=== PATIENT | male | born 1980 | race Caucasian/White ===

== ENCOUNTER 2024-04-23 23:26 | Emergency (ER) | payer OTHER, SELFPAY ==
[2024-04-23 23:28] VITALS: BP 205/120
--- NOTE | 2024-04-23 23:53 | ED.GENMED ---
History of Present Illness
<Liv Miller [employer] - Last Filed: 04/25/24 10:11>
General
Chief Complaint: Abdominal Pain
Source: patient
Exam Limitations: none
Time Seen by Provider: 04/23/24 23:53
Nursing documentation reviewed up to this point in time: agreed with
Travel History
Have you had any contact with someone who has COVID-19?: No
Do you have any symptoms of coronavirus? Fever > 100 degrees, chills, cough, shortness of breath, sore throat, loss of taste or smell, muscle aches, or headache?: No
History of Present Illness
History of Present Illness:
43-year-old male with history of HTN, inguinal hernia repair presents stating at 8 PM tonight he developed upper stomach pains 06/15 and then developed pain in the left side of his chest. He took ibuprofen 200 mg with no relief. He describes the
pain as 'tightness, cramping.' By 9:30 he felt so much pressure in his chest and stomach he tried to make himself vomit to relieve the pressure. He did vomit a little but this did not help.
Past History
<Liv Miller, [employer] - Last Filed: 04/25/24 10:11>
Past History
ED Past Medical History: HTN
ED Past Surgical History: Other (Hernia repair)
Social History
Tobacco: Non-smoker
Alcohol: Occasional
Personal:
Living: with family
Employment: Employed
Review of Systems
<Liv Miller, [employer] - Last Filed: 04/25/24 10:11>
Review of Systems
Allergies reviewed?: Yes
All Other Systems: ROS reviewed and negative except as documented in HPI and ROS
Constitutional: Denies fever
Respiratory: Denies trouble breathing
Cardiac: Reports chest pain; Denies diaphoresis, palpitations or syncope
ABD/GI: Reports abdominal pain and nausea; Denies vomiting or diarrhea
: Denies dysuria or difficulty voiding
Musculoskeletal: Reports no symptoms
Skin: Reports no symptoms
Neurological: Reports no symptoms
Phy Exam
<Liv Miller, [employer] - Last Filed: 04/25/24 10:11>
Physical Exam
Physical Exam:
GENERAL: No acute distress. A&Ox3.
CONSTITUTIONAL: Afebrile.
EYES: Clear, conjunctivae normal
ENMT: moist mucus membranes, Pharynx nl
RESPIRATORY: Regular respirations, nonlabored, lungs clear.
CARDIOVASCULAR: Regular rate and rhythm, no murmurs, no rubs.
GI: Soft, obese nontender, normal BS
MUSCULOSKELETAL: Moves with ease. Well perfused.
SKIN: Warm, dry, pink
PSYCH: Normal mood and affect. Well kept, interactive and appropriate
NEUROLOGIC: Awake, alert and oriented. No focal neurological deficits
Course
<Liv Miller, [employer] - Last Filed: 04/25/24 10:11>
Orders/Labs/Results
Orders:
Orders
04/23/24 23:31
EKG- Treatment ONCE
04/23/24 23:54
Complete Blood Count/With Diff Urgent
Comprehensive Metabolic Panel Urgent
04/24/24
Electrocardiogram (*1) Stat
Reason for Study: Abdominal Pain
04/24/24 00:20
Mag Hydrox/Al Hydrox/Simeth [Maalox] 30 ml Phenobarb/Hyoscy/Atropine/Scop [] 10 ml Viscous Lidocaine 2% [Xylocaine Viscous Cup] 10 ml PO NOW
04/24/24 00:21
CR Chest - 2 Views Urgent
Comment:
Reason For Exam: Chest pain
04/24/24 00:27
Phenobarb/Hyoscy/Atropine/Scop [] 10 ml .ROUTE .ST-MED ONE
04/24/24 00:28
Mag Hydrox/Al Hydrox/Simeth [Maalox] 30 ml .ROUTE .STK-MED ONE
Viscous Lidocaine 2% [Xylocaine Viscous Cup] 15 ml .ROUTE .STK-MED ONE
04/24/24 00:32
Lipase Urgent
Troponin I Urgent
04/24/24 00:56
Pantoprazole [Protonix IV] 80 mg IV NOW STA
04/24/24 01:33
Ketorolac [Toradol] 15 mg .ROUTE .STK-MED ONE
Pantoprazole [Protonix IV] 80 mg .ROUTE .STK-MED ONE
04/24/24 02:38
Sucralfate Suspension [Carafate Suspension] 1 gm .ROUTE .STK-MED ONE
04/24/24 04:03
Electrocardiogram (*1) Urgent
Reason for Study: Abdominal Pain
CT Abd/pelvis W Iv Cont Urgent
Comment:
Reason For Exam: diffuse abd pain
EKG- Treatment ONCE
04/24/24 04:07
Troponin I Urgent
04/24/24 05:49
US Abdomen Complete/Upper Urgent
Comment:
Reason For Exam: upper abd pain
Abnormal Lab Results
04/24/24
00:32
Abs Immat Gran (auto) 0.1 H 10^3/uL
(0-0.05)
Absolute Neuts (auto) 7.2 H 10^3/uL
(1.4-6.5)
Immature Gran % 0.6 H %
(0-0.5)
Lymphocytes % 18.6 L %
(20.5-51.1)
Glucose 117 H mg/dl
(70-99)
ALT 57 H U/L
(0-50)
04/24/24 00:32
04/24/24 00:32
Vital Signs
Initial and Last Documented VS:
Initial Vital Signs
Temp Pulse Resp BP Pulse Ox
97.8 F 80 18 205/120 100
04/23/24 23:28 04/23/24 23:28 04/23/24 23:28 04/23/24 23:28 04/23/24 23:28
Last Documented Vital Signs
Temp Pulse Resp BP Pulse Ox
97.3 F 75 12 157/84 98
04/24/24 07:49 04/24/24 07:49 04/24/24 07:49 04/24/24 07:49 04/24/24 07:49
<Kiran Alvarez, DO - Last Filed: 04/24/24 07:42>
Orders/Labs/Results
Orders:
Orders
04/23/24 23:31
EKG- Treatment ONCE
04/23/24 23:54
Complete Blood Count/With Diff Urgent
Comprehensive Metabolic Panel Urgent
04/24/24
Electrocardiogram (*1) Stat
Reason for Study: Abdominal Pain
04/24/24 00:20
Mag Hydrox/Al Hydrox/Simeth [Maalox] 30 ml Phenobarb/Hyoscy/Atropine/Scop [] 10 ml Viscous Lidocaine 2% [Xylocaine Viscous Cup] 10 ml PO NOW
04/24/24 00:21
CR Chest - 2 Views Urgent
Comment:
Reason For Exam: Chest pain
04/24/24 00:27
Phenobarb/Hyoscy/Atropine/Scop [] 10 ml .ROUTE .STK-MED ONE
04/24/24 00:28
Mag Hydrox/Al Hydrox/Simeth [Maalox] 30 ml .ROUTE .STK-MED ONE
Viscous Lidocaine 2% [Xylocaine Viscous Cup] 15 ml .ROUTE .STK-MED ONE
04/24/24 00:32
Lipase Urgent
Troponin I Urgent
04/24/24 00:56
Pantoprazole [Protonix IV] 80 mg IV NOW STA
04/24/24 01:33
Ketorolac [Toradol] 15 mg .ROUTE .STK-MED ONE
Pantoprazole [Protonix IV] 80 mg .ROUTE .STK-MED ONE
04/24/24 02:38
Sucralfate Suspension [Carafate Suspension] 1 gm .ROUTE .STK-MED ONE
04/24/24 04:03
Electrocardiogram (*1) Urgent
Reason for Study: Abdominal Pain
CT Abd/pelvis W Iv Cont Urgent
Comment:
Reason For Exam: diffuse abd pain
EKG- Treatment ONCE
04/24/24 04:07
Troponin I Urgent
04/24/24 05:49
US Abdomen Complete/Upper Urgent
Comment:
Reason For Exam: upper abd pain
Abnormal Lab Results
04/24/24
00:32
Abs Immat Gran (auto) 0.1 H 10^3/uL
(0-0.05)
Absolute Neuts (auto) 7.2 H 10^3/uL
(1.4-6.5)
Immature Gran % 0.6 H %
(0-0.5)
Lymphocytes % 18.6 L %
(20.5-51.1)
Glucose 117 H mg/dl
(70-99)
ALT 57 H U/L
(0-50)
04/24/24 00:32
04/24/24 00:32
Vital Signs
Initial and Last Documented VS:
Initial Vital Signs
Temp Pulse Resp BP Pulse Ox
97.8 F 80 18 205/120 100
04/23/24 23:28 04/23/24 23:28 04/23/24 23:28 04/23/24 23:28 04/23/24 23:28
Last Documented Vital Signs
Temp Pulse Resp BP Pulse Ox
97.3 F 75 12 157/84 98
04/24/24 07:49 04/24/24 07:49 04/24/24 07:49 04/24/24 07:49 04/24/24 07:49
<Liv Miller [employer] - Last Filed: 04/25/24 10:11>
MDM/Problems Addressed
Differential Diagnosis Includes:
[place], GERD
MDM/Problems Addressed:
43-year-old male with history of HTN, inguinal hernia repair presents stating at 8 PM tonight he developed upper stomach pains 06/15 and then developed pain in the left side of his chest. He took ibuprofen 200 mg with no relief. He describes the
pain as 'tightness, cramping.' By 9:30 he felt so much pressure in his chest and stomach he tried to make himself vomit to relieve the pressure. He did vomit a little but this did not help.
CBC normal
CMP normal
Lipase normal
Troponin:
Chest x-ray NAD
12:50 AM
Patient states no improvement after GI cocktail.
2:00 a.m.
Pt states some relief of pain, chest pain gone some relief of abdominal pain but it still persists.
Chronic conditions affecting care: HTN
<Liv Miller, [employer] - Last Filed: 04/25/24 10:11>
*Critical Care Note
Total Time (30-74mins, 75-104mins- exclusive of procedures): Not Applicable
ED Attending Note
<Liv Miller, [employer] - Last Filed: 04/25/24 10:11>
-
Portions of this chart may have been created with voice recognition software.� Occasional wrong word or��sound alike� substitutions may have occurred due to the inherent limitations of voice recognition software.
<Kiran Alvarez DO - Last Filed: 04/24/24 07:42>
ED Attending Note
Patient seen and examined by attending physician: Yes
I performed the substantive portion of visit, reviewed & personally made and approve the management plan that is documented in note by myself or LANCE.: Yes
ED Attending Note:
04/24/2024 0404 AM: In to see the patient, awakened him from sleep. Patient complaining at a 6 out of 10 diffuse abdominal pain. States that his pain has improved and he no longer has chest pain. At this point we will CT scan his abdomen and
pelvis as he states that he is having diffuse pain. Patient was seen in conjunction with the nurse practitioner. I have reviewed and agree with the history and treatment plan presented. On my independent physical exam, patient is awake, alert,
and oriented x3, still complaining of 6 out of 10 abdominal pain. Good bowel sounds in all 4 quadrants.
Discharge Plan
Departure
Patient Disposition: Home (Routine Discharge)
Date of Disposition: 04/24/24
Time of Disposition: 07:32
Patient with high blood pressure during this ER visit?: Yes
Condition: Good
Discharge Problem:
Atypical chest pain, Biliary colic
Instructions: Chest Pain That Is Not Caused by the Heart (DC), Acid Reflux and GERD in Adults (DC), Gallstones (DC), BLOOD PRESSURE
Prescriptions:
New
pantoprazole [Protonix] 40 mg tablet,delayed release (DR/EC)
40 mg PO DAILY Qty: 30 0RF
No Action
amlodipine 5 mg Tablet
5 mg PO DAILY
valsartan
1 tab PO DAILY
Patient Comments:
UNSURE OF MG
Referrals:
Won Gordon MD [Active] - Call in 1-3 days for appt
Rik Louis DO [Family Provider] - Call in 1-3 days for appt
Activity Restrictions/Additional Instructions:
It was a pleasure meeting you and taking part in your care. We hope for your continued healing and wellness.
Please read discharge instructions in their entirety. However, they are for general education and may not describe your exact diagnosis at discharge. Information on your ER visit and medical conditions were discussed with you along with appropriate
follow up information...
If indicated, please take your medications as instructed and indicated on discharge paperwork.
Please schedule a follow up appointment as directed. Call to schedule an appointment
Please return to the emergency department with ANY change in, persisting, or worsening of symptoms. If any of your symptoms do not improve, or persist, or become more severe within 6-12 hours, please return to the emergency department for further
care.
Please return to the emergency department if you develop a headache, neck pain/stiffness, fever greater than 100.4F, chest pain, shortness of breath, persistent nausea, vomiting, slurred speech, difficulty walking, numbness/tingling, weakness, signs
of infection or any other symptoms that are worrisome to you.
If you have any questions or concerns please do not hesitate to call the Hospital at or E-mail me directly at [email or web address]
Interventions
Interventions:
*Risk Screen - Suicide Last Done: 04/23/24 23:28
*General Assessment Last Done: 04/24/24 00:05
*Neglect/Abuse Screening Last Done: 04/23/24 23:28
*ED COVID-19 Vaccine History Last Done: 04/24/24 07:49
*Nursing Disposition Last Done: 04/24/24 07:49
PX-[id number]-Idgoqijycu Assessment Last Done: 04/24/24 00:05
ED- Cardiac Assessment Last Done: 04/24/24 00:05
Discharge Date and Time
Discharge Date/Time: 04/24/24 07:51
Print Language: GUYANESE
[2024-04-24] VITALS (7 sets, daily range): BP systolic 149–175; BP diastolic 81–106
[2024-04-24] MEDS: MAALOX 50 PO (00:29)
[2024-04-24 00:37] LABS: % Basophils 0.3 % (0-2); % Eosinophils 1.9 % (0-6); % Immature Granulocytes 0.6 % (0-0.5); % Lymphocytes 18.6 % (20.5-51.1); % Monocytes 6.4 % (1.7-9.3); % Neutrophils 72.2 % (42.2-75.2); Absolute Eosinophils 0.2 10^3/uL (0-0.7); Absolute Immature Granulocytes 0.1 10^3/uL (0-0.05); Absolute Lymphocytes 1.8 10^3/uL (1.2-3.4); Absolute Monocytes 0.6 10^3/uL (0.1-0.6); Absolute Neutrophils 7.2 10^3/uL (1.4-6.5); Hematocrit 44.1 % (39.0-52.0); Hemoglobin 15.1 g/dL (13.0-18.0); Mean Corp Hgb Conc. 34.2 g/dL (33.0-37.0); Mean Corpuscular Hgb 28.4 pg (27.0-31.0); Mean Corpuscular Volume 82.9 fL (80.0-94.0); Mean Platelet Volume 9.3 fL (7.4-10.4); Nucleated Red Blood Cells % 0 % (-); Platelet Count 290 10^3/uL (130-400); Red Blood Cell Count 5.32 10^6/uL (4.70-6.10); White Blood Cell Count 9.9 10^3/uL (4.8-10.8)
[2024-04-24 00:51] LABS: ALT (SGPT) 57 U/L (0-50); AST (SGOT) 36 U/L (17-59); Albumin 4.9 g/dl (3.5-5.0); Alkaline Phosphatase 67 U/L (38-126); Blood Urea Nitrogen 20 mg/dl (9-20); Calcium 9.8 mg/dl (8.4-10.2); Carbon Dioxide 27 mmol/L (22-30); Chloride 105 mmol/L (98-107); Glucose 117 mg/dl (70-99); Lipase 183 U/L (23-300); Potassium 4.6 mmol/L (3.5-5.1); Sodium 142 mmol/L (135-145); Total Bilirubin 0.6 mg/dl (0.2-1.3); eGFR > 60.00
[2024-04-24 03:37] LABS: Troponin I < 0.012 ng/ml
--- NOTE | 2024-04-24 03:46 | DOWNTIME ---
There was a [employer] Downtime on 03/19/2024 from 0100 to 03/20/2024 at 0338. Downtime documentation of patient's care, including medication administrations, has been reconciled in the electronic record per guidelines. Refer to the
patient's paper chart under the miscellaneous tab to see printed paper medication records and downtime forms.
[2024-04-24 04:47] LABS: Troponin I < 0.012 ng/ml
== END 2024-04-24 07:51 | disposition home or self-care (01) ==
LOC: EMR 23:26
PROVIDERS: Registered Nurse; EMERGENCY PHYSICIAN Student in an Organized Health Care Education/Training Program; FAMILY PHYSICIAN Family Medicine
DX: R07.89 Other chest pain (principal); K80.50 Calculus of bile duct without cholangitis or cholecystitis without obstruction; I10 Essential (primary) hypertension
CPT/HCPCS: 99285; 71046; 74177; 76700; 80053; 83690; 84484; 85025; 93005; Q9967

== ENCOUNTER 2024-08-05 06:04 | Day surgery (SDC) | payer OTHER, SELFPAY ==
[2024-08-05] VITALS (8 sets, daily range): BP systolic 122–163; BP diastolic 73–97; BMI 37.8
[2024-08-05] MEDS: TYLENOL 1000 MG PO (10:05)
[2024-08-05] MEDS: IC GREEN 2.5 MG IV (10:06)
[2024-08-05] MEDS: NORMOSOL-R/PLASMALYTE-A 1000 IV (10:06)
--- NOTE | 2024-08-05 12:12 | OR.RPT ---
Operative Report
Operative Report
Primary Surgeon: Evan
Assisting: Brown CORTES
Pre-op Diagnosis: Biliary colic
Post-op Diagnosis: Chronic calculous cholecystitis
Procedure Performed: Robot assisted laparoscopic cholecystectomy
Anesthesia Type: GETA
Specimen / Cultures: Gallbladder
Estimated Blood Loss: 10cc
Complications: None immediate
Operative Findings: Extremely large and softly distended gallbladder encased in dense omental adhesions and with a thickened fibrotic wall
Date of Surgery:� 08/05/24
Indications: This 44M developed right upper quadrant pain. Work-up showed gallstones, essentially normal liver enzymes and no ductal dilation. Laparoscopic cholecystectomy with robotic assist was elected.
Description of procedure: The patient was placed on the operating table in the supine position. General anesthesia was induced. A time-out was completed verifying correct patient, procedure, site, positioning, and special equipment prior to
beginning this procedure. An orogastric tube was placed. The abdomen was prepped and draped in the usual sterile fashion. A stab incision was made in left upper quadrant and the Veress needle was inserted. Proper position was confirmed by aspiration
and saline meniscus test. The abdomen was insufflated with carbon dioxide to a pressure of 12mmHg. The patient tolerated insufflation well.
A 8mm trocar was then inserted above the umbilicus. The laparoscope was inserted and the abdomen inspected. No injuries from initial trocar placement or Veress needle insertion were noted. Additional 8mm trocars were then inserted in the following
locations: two in the right lower quadrant and to the left of the umbilicus and just above. The abdomen was inspected and no abnormalities were found. The table was placed in the reverse Trendelenburg position with the right side up. The gallbladder
was encased in dense omental adhesions. These were carefully taken down with hook cautery. The dome of the gallbladder was grasped with an atraumatic grasper and retracted over the dome of the liver. The infundibulum was then grasped with an
atraumatic grasper and retracted toward the right lower quadrant. This maneuver exposed Calot�s triangle. The peritoneum overlying the gallbladder infundibulum was then incised and the cystic duct and cystic artery identified and circumferentially
dissected so that a clear view of the liver was achieved through a window between the cystic duct an cystic artery. At this time, the only two structures going into the gallbladder were the cystic artery and cystic duct. The CBD was identified with
ICG and protected.
The cystic duct was then doubly clipped and divided. The cystic artery was controlled with bipolar and divided. The gallbladder was then dissected from its peritoneal attachments by electrocautery. The gallbladder was removed using an endoscopic
retrieval bag placed through the umbilical port. The gallbladder was passed off the table as a specimen. The gallbladder fossa was irrigated with sterile saline and no evidence of bleeding from the gallbladder fossa or cystic artery or leakage of
the bile from the cystic duct stump was noted. The umbilical trocar site was closed at the fascial level with 2-0 PDS. Secondary trocars were removed under direct vision and noted to be hemostatic. The abdomen was allowed to collapse. The skin was
closed with subcuticular sutures of 4-0 monocryl and topical skin adhesive. The orogastric tube was removed.
The patient tolerated the procedure well and was taken to the postanesthesia care unit in stable condition.
[2024-08-05] MEDS: SUBLIMAZE 50 MCG IV (12:44)
--- NOTE | 2024-08-05 13:34 | SUR.PHASEI ---
medicated with fentanyl in pacu with relief, no nausea, vss, patient with known sleep apnea, uses CPAP daily. Patient is aware and agrees to use CPAP with any rest periods today and while taking narcotics.
== END 2024-08-05 14:14 | disposition home or self-care (01) ==
LOC: SDS 06:04
PROVIDERS: ATTENDING PHYSICIAN Surgery
DX: K80.12 Calculus of gallbladder with acute and chronic cholecystitis without obstruction (principal); K82.8 Other specified diseases of gallbladder
CPT/HCPCS: 47562; 88304

== ENCOUNTER 2024-10-27 08:06 | Emergency (ER) | payer OTHER, SELFPAY ==
[2024-10-27 08:07] VITALS: BP 191/111
--- NOTE | 2024-10-27 08:43 | ED.GENMED ---
History of Present Illness
General
Chief Complaint: Cold/Flu/URI Symptoms
Source: patient
Exam Limitations: none
Time Seen by Provider: 10/27/24 08:13
Nursing documentation reviewed up to this point in time: agreed with
History of Present Illness
History of Present Illness:
pt is a 44 y/o M with h/o HTN on valasartan and amlodipine, compiant
here with sxs fluctuating the past month
dry mouth, sore throat yamile in the AM, mild headache, occ cough, post nasal drip
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
pt says his sxs probably started a month ago but were mild and picked up the past week. this happens to be a day he had off from work
he has not had any new symptoms today
headahe is not worst of life, no vision changes, cp, sob, weakness, vomiting, confusion
pt has not had any neck pain, fever, voice change
occasionally uses cough drops but othewrise hasn't tried any meds
no h/o GERD
took his bp meds this morming
usually runs 130-150s on the meds
Past History
Past History
ED Past Medical History: HTN
ED Past Surgical History: Other (Hernia repair)
Social History
Tobacco: Non-smoker
Alcohol: Occasional
Personal:
Living: with family
Employment: Employed
Review of Systems
Review of Systems
Allergies reviewed?: Yes
All Other Systems: Not applicable
Phy Exam
Physical Exam
Physical Exam:
GENERAL: Alert , in no apparent distress
EYE: pupils equal and reactive
NECK: Supple
ENT: b/l TM s clear, pharynx erythematous mildly, post nasal drip/stippling; slightly boggy nasal mucosa; but no tonsillar hypertrophy or exudates
CARDIAC: Regular rate and rhythm, no edema
LUNGS: Clear breath sounds bilaterally, no acute respiratory distress, no wheezes/rales/rhonchi, occ cough
ABDOMEN: Soft, without focal tenderness, no r/g, no cvat, normal bowel sounds
NEUROLOGICAL: Alert and oriented, no focal neuro deficits
SKIN: Warm and dry, skin intact.
MUSCULOSKELETAL: No edema, well perfused.
PSYCH: Normal and appropriate interaction.
Course
Orders/Labs/Results
Orders:
Orders
10/27/24 08:43
Acetaminophen [Tylenol] 650 mg PO NOW STA
CR Chest - 2 Views Urgent
Comment:
Reason For Exam: cough x 1 mo
10/27/24 08:58
COVID-19 Antigen Urgent
Source: Nasal Swab
Influenza A+B Rapid Molecular Urgent
RADHA Source: Nasal Swab
Specimen Description:
Rapid Strep Group A Urgent
RADHA Source: Throat/Pharynx
Specimen Description:
Date Specimen was Collected: 10/27/24
Time Specimen was Collected: 08:51
Vital Signs
Blood pressure: 156/80
Initial and Last Documented VS:
Initial Vital Signs
Temp Pulse Resp BP Pulse Ox
36.7 C 91 18 191/111 99
10/27/24 08:07 10/27/24 08:07 10/27/24 08:07 10/27/24 08:07 10/27/24 08:07
Last Documented Vital Signs
Temp Pulse Resp BP Pulse Ox
36.7 C 91 18 139/75 99
10/27/24 08:07 10/27/24 08:07 10/27/24 08:07 10/27/24 09:30 10/27/24 08:07
MDM/Problems Addressed
Differential Diagnosis Includes:
URI, GERD, sinusitis
MDM/Problems Addressed:
44 y/o M
h/o HTN on meds
here with dry mouth/sore throat, dry cough, headache x 1 mo
some mild nasal congestion
no fever
sx worse in AM
not worse today but pt had time off to come in
other coworkers out right now with covid
pt has not taken meds for sxs
on exam iniitally BP very high, rechecked 150/80 which is closer to noraml
afebrile
ears cler
mild nasal mucosal edema/erythema
posterior pharynx stippling
lugns clear
will check strep, flu, covid and cxr
CXR indep reviewed, neg for infiltrate
flu/covid/strep neg
likely some noninfectious cause for symptoms, allergies, GERD etc
but will cover with abx given length of time for symptoms
return precautions
bp improved
*Critical Care Note
Total Time (30-74mins, 75-104mins- exclusive of procedures): Not Applicable
ED Attending Note
-
Portions of this chart may have been created with voice recognition software.� Occasional wrong word or��sound alike� substitutions may have occurred due to the inherent limitations of voice recognition software.
Discharge Plan
Departure
Patient Disposition: Home (Routine Discharge)
Date of Disposition: 10/27/24
Time of Disposition: 09:31
Patient with high blood pressure during this ER visit?: No
Condition: Fair
Covid-19: Not Applicable
Discharge Problem:
Sinusitis
Instructions: Sinusitis in adults - ED discharge instructions
Prescriptions:
New
amoxicillin-pot clavulanate 875-125 mg tablet
1 tab PO BID Qty: 14 0RF
Zyrtec 10 mg capsule
10 mg PO DAILY Qty: 20 0RF
fluticasone propionate [Flonase Allergy Relief] 50 mcg/actuation spray,suspension
1 spray intranasal DAILY Qty: 16 0RF
No Action
amlodipine 5 mg Tablet
5 mg PO DAILY
valsartan 80 mg Tablet
80 mg PO DAILY
oxycodone 5 mg tablet
5 - 10 mg PO Q4HPRN PRN (Reason: moderate to severe pain) Qty: 20 0RF
Referrals:
Rik Louis, [Family Provider] - Follow up in 2-3 days
Activity Restrictions/Additional Instructions:
YOUR WORK UP HERE DOES NOT REVEAL ANY CONCERNING FINDINGS, YOUR CHEST XRAY WAS CLEAR
YOUR FLU, COVID AND STREP TESTS WERE NEGATIVE
THE SYMPTOMS COULD BE FROM SINUS INFECTION
OR YOU COULD HAVE ALLERGIES OR ACID REFLUX WHICH ARE ALSO COMMON CAUSES OF DRY THROAT/SORE THROAT AND COUGH
TRY AUGMENTIN TWICE A DAY FOR 7 DAYS
BUT ALSO TAKE ZYRTEC ONCE A DAY AND USE FLONASE
MAKE SURE TO USE A HUMIDIFIED AIR FOR YOUR C PAP
RETURN FOR: WORSENING SEVERE SYMPTOMS OR ANY COCNERNS
OTHERWISE PLEASE SEE YOUR DOCTOR FOR ONGOING SYMPTOMS, YOU MAY NEED EAR NOSE AND THROAT EVALUATION
Interventions
Interventions:
*Risk Screen - Suicide Last Done: 10/27/24 08:07
*General Assessment Last Done: 10/27/24 08:07
*Neglect/Abuse Screening Last Done: 10/27/24 08:07
*ED COVID-19 Vaccine History Last Done: 10/27/24 08:07
Discharge Date and Time
Print Language: [place]
[2024-10-27] MEDS: TYLENOL 650 MG PO (08:55)
[2024-10-27 09:25] LABS: COVID-19 Antigen Negative (Negative)
[2024-10-27 09:30] VITALS: BP 139/75
== END 2024-10-27 09:35 | disposition home or self-care (01) ==
LOC: EMR 08:06
PROVIDERS: Physician Assistant; EMERGENCY PHYSICIAN Emergency Medicine; FAMILY PHYSICIAN Family Medicine
DX: J32.9 Chronic sinusitis, unspecified (principal); I10 Essential (primary) hypertension; Z20.822 Contact with and (suspected) exposure to COVID-19
CPT/HCPCS: 99283; 71046; 87070; 87502; 87811; 87880

== ENCOUNTER 2024-10-30 09:40 | Emergency (ER) | payer OTHER, SELFPAY ==
[2024-10-30 09:42] VITALS: BP 182/111
[2024-10-30 10:11] LABS: % Basophils 0.5 % (0-2); % Eosinophils 1.8 % (0-6); % Immature Granulocytes 0.5 % (0-0.5); % Lymphocytes 13.3 % (20.5-51.1); % Neutrophils 76.9 % (42.2-75.2); Absolute Eosinophils 0.2 10^3/uL (0-0.7); Absolute Lymphocytes 1.2 10^3/uL (1.2-3.4); Absolute Monocytes 0.6 10^3/uL (0.1-0.6); Absolute Neutrophils 6.7 10^3/uL (1.4-6.5); Hematocrit 46.8 % (39.0-52.0); Hemoglobin 15.6 g/dL (13.0-18.0); Mean Corp Hgb Conc. 33.3 g/dL (33.0-37.0); Mean Corpuscular Hgb 28.3 pg (27.0-31.0); Mean Corpuscular Volume 84.9 fL (80.0-94.0); Mean Platelet Volume 9.3 fL (7.4-10.4); Nucleated Red Blood Cells % 0 % (-); Platelet Count 282 10^3/uL (130-400); Red Blood Cell Count 5.51 10^6/uL (4.70-6.10); Red Cell Dist. Width 12.9 % (11.5-14.5); White Blood Cell Count 8.7 10^3/uL (4.8-10.8)
[2024-10-30 10:23] LABS: ALT (SGPT) 68 U/L (0-50); AST (SGOT) 34 U/L (17-59); Alkaline Phosphatase 62 U/L (38-126); Blood Urea Nitrogen 12 mg/dl (9-20); Calcium 9.6 mg/dl (8.4-10.2); Carbon Dioxide 28 mmol/L (22-30); Chloride 101 mmol/L (98-107); Glucose 118 mg/dl (70-99); Potassium 4.1 mmol/L (3.5-5.1); Sodium 139 mmol/L (135-145); Total Bilirubin 0.5 mg/dl (0.2-1.3); Total Protein 8.1 g/dl (6.3-8.2); eGFR > 60.00
[2024-10-30 11:45] VITALS: BMI 38.4
[2024-10-30 11:50] VITALS: BP 147/69
--- NOTE | 2024-10-30 12:08 | ED.GENMED ---
History of Present Illness
General
Chief Complaint: Throat Problem
Source: patient
Exam Limitations: none
Time Seen by Provider: 10/30/24 11:37
Nursing documentation reviewed up to this point in time: agreed with
History of Present Illness
History of Present Illness:
44-year-old male past medical history of STONE presenting to the emergency department today with concerns of sore throat headache that is been ongoing over the past few days. Has had some degree of symptoms over the past month. Had some worsening
symptoms 3 days ago was treated for potential sinusitis was given Augmentin twice daily, he has been taking this as prescribed. Still with ongoing symptoms. Has been able to tolerate by mouth but feels like he may be having some intermittent
fevers at home. Denies any chest pain shortness of breath vomiting.
Past History
Past History
ED Past Medical History: HTN
ED Past Surgical History: Other (Hernia repair)
Social History
Tobacco: Non-smoker
Alcohol: Occasional
Personal:
Living: with family
Employment: Employed
Review of Systems
Review of Systems
Allergies reviewed?: Yes
All Other Systems: ROS reviewed and negative except as documented in HPI and ROS
Phy Exam
Physical Exam
Physical Exam:
GENERAL: Alert , in no apparent distress
EYE: pupils equal and reactive
NECK: Supple, no significant adenopathy.
ENT: Swollen boggy nasal turbinates, redness and irritation to the posterior pharynx without significant swelling. o/p clr, mmm.
CARDIAC: Regular rate and rhythm .
LUNGS: Very slight Rales to the right mid lung field on examination only with deep breaths and forced exhalation. Otherwise lungs are clear.
ABDOMEN: Soft, without focal tenderness, no r/g, no cvat
NEUROLOGICAL: Alert and oriented, no focal neuro deficits
SKIN: Warm and dry, skin intact.
MUSCULOSKELETAL: No edema, well perfused.
PSYCH: Normal and appropriate interaction.
Sepsis
Sepsis Screening
Sepsis Assessment: Sepsis Ruled Out
Sepsis Screen
Sepsis Screen: Sepsis Ruled Out
Date: 10/30/24
Time: 14:48
Course
Orders/Labs/Results
Orders:
Orders
10/30/24 09:59
Complete Blood Count/With Diff Urgent
Comprehensive Metabolic Panel Urgent
Monotest Urgent
Comment: MONO ADDED ON BY FLOOR 11:40AM 10-30-24
10/30/24 11:38
Add On- LAB Urgent
Tests Added?: monotest
10/30/24 11:57
Dexamethasone Sod Phosphate [Decadron] 10 mg IV NOW STA
Ketorolac [Toradol] 30 mg IV NOW STA
10/30/24 11:58
0.9% Sodium Chloride 1000 ml [Nss] 1,000 ml IV BOLUS
10/30/24 12:06
COVID-19 Antigen Urgent
Source: Nasal Swab
Influenza A+B Rapid Molecular Urgent
RADHA Source: Nasal Swab
Specimen Description:
10/30/24 12:13
Chest [CR Chest - 2 Views ] Urgent
Comment:
Reason For Exam: cough fever
10/30/24 13:41
Vital Signs- Treatment ONCE
Frequency: Once
Abnormal Lab Results
10/30/24
09:59
Absolute Neuts (auto) 6.7 H 10^3/uL
(1.4-6.5)
Neutrophils % 76.9 H %
(42.2-75.2)
Lymphocytes % 13.3 L %
(20.5-51.1)
Glucose 118 H mg/dl
(70-99)
ALT 68 H U/L
(0-50)
10/30/24 09:59
10/30/24 09:59
Vital Signs
Initial and Last Documented VS:
Initial Vital Signs
Temp Pulse Resp BP Pulse Ox
99.8 F 111 18 182/111 99
10/30/24 09:42 10/30/24 09:42 10/30/24 09:42 10/30/24 09:42 10/30/24 09:42
Last Documented Vital Signs
Temp Pulse Resp BP Pulse Ox
99.3 F 99 20 146/82 98
10/30/24 14:19 10/30/24 14:19 10/30/24 14:19 10/30/24 14:19 10/30/24 14:19
MDM/Problems Addressed
MDM/Problems Addressed:
44-year-old male presenting to the emergency department with ongoing sore throat headache fatigue upper respiratory symptoms over the past few weeks. Treated for sinusitis 3 days ago with Augmentin and has been taking this as prescribed. Upon
arrival here hypertensive and tachycardic. Blood pressure improving without specific treatment still somewhat tachycardic concerning this was given fluids Toradol dexamethasone for patient's inflammation. Labs resulting in unremarkable negative
mono COVID and flu. Chest x-ray without acute abnormalities. Unclear what specific entity is causing patient's ongoing symptoms. During initial examination there was a very slight rales patient does have ongoing cough and believes he has a fever
patient was added additional coverage for possible atypicals. Otherwise was given steroids vital signs stable at time of discharge advised her close outpatient follow-up return precautions were also given.
*Critical Care Note
Total Time (30-74mins, 75-104mins- exclusive of procedures): Not Applicable
ED Attending Note
-
Portions of this chart may have been created with voice recognition software.� Occasional wrong word or��sound alike� substitutions may have occurred due to the inherent limitations of voice recognition software.
Discharge Plan
Departure
Patient Disposition: Home (Routine Discharge)
Date of Disposition: 10/30/24
Time of Disposition: 14:42
Patient with high blood pressure during this ER visit?: No
Condition: Good
Covid-19: Not Applicable
Discharge Problem:
Acute viral syndrome, Sinusitis
Instructions: Sinusitis in adults
Prescriptions:
New
azithromycin 500 mg tablet
500 mg PO DAILY 2 Days Qty: 2 0RF
prednisone 20 mg tablet
40 mg PO DAILY 3 Days Qty: 6 0RF
No Action
amlodipine 5 mg Tablet
5 mg PO DAILY
valsartan 80 mg Tablet
80 mg PO DAILY
oxycodone 5 mg tablet
5 - 10 mg PO Q4HPRN PRN (Reason: moderate to severe pain) Qty: 20 0RF
amoxicillin-pot clavulanate 875-125 mg tablet
1 tab PO BID Qty: 14 0RF
Zyrtec 10 mg capsule
10 mg PO DAILY Qty: 20 0RF
fluticasone propionate [Flonase Allergy Relief] 50 mcg/actuation spray,suspension
1 spray intranasal DAILY Qty: 16 0RF
Referrals:
Rik Louis DO [Family Provider] -
Activity Restrictions/Additional Instructions:
You came to the emergency department today with concerns of ongoing symptoms. Here he had a reassuring assessment no white count normal labs negative for mono COVID and flu. Chest x-ray did not show any obvious consolidations. Please take the
prescribed medications and follow-up closely with ENT and your primary care doctor. Return for any worsening, new or concerning symptoms.
Interventions
Interventions:
*Risk Screen - Suicide Last Done: 10/30/24 11:45
*General Assessment Last Done: 10/30/24 11:45
*Neglect/Abuse Screening Last Done: 10/30/24 11:45
ED- Fall Risk Assessment Last Done: 10/30/24 11:45
*ED COVID-19 Vaccine History Last Done: 10/30/24 11:45
ED-EENT Assessment Last Done: 10/30/24 11:47
ED- Pulmonary Assessment Last Done: 10/30/24 11:47
Discharge Date and Time
Print Language: FIJIAN
[2024-10-30] MEDS: TORADOL 30 MG IV (12:13)
[2024-10-30] MEDS: DECADRON 10 MG IV (12:13)
[2024-10-30] MEDS: NSS 1000 IV (12:13)
[2024-10-30 12:25] LABS: Monotest Negative (Negative)
[2024-10-30 12:44] LABS: COVID-19 Antigen Negative (Negative)
[2024-10-30 14:19] VITALS: BP 146/82
[2024-10-30] MEDS: ZITHROMAX 500 MG PO (14:46)
== END 2024-10-30 15:04 | disposition home or self-care (01) ==
LOC: EMR 09:40
PROVIDERS: Emergency Medicine; Physician Assistant; EMERGENCY PHYSICIAN Emergency Medicine; FAMILY PHYSICIAN Family Medicine
DX: J01.90 Acute sinusitis, unspecified (principal); B34.9 Viral infection, unspecified; R00.0 Tachycardia, unspecified; R51.9 Headache, unspecified; Z11.52 Encounter for screening for COVID-19; G47.33 Obstructive sleep apnea (adult) (pediatric); I10 Essential (primary) hypertension; Z90.49 Acquired absence of other specified parts of digestive tract; Z86.16 Personal history of COVID-19; Z87.891 Personal history of nicotine dependence
CPT/HCPCS: 99284; 96374; 96375; 96361; 71046; 80053; 85025; 86308; 87502; 87811

== ENCOUNTER 2024-11-05 05:23 | Emergency (ER) | payer OTHER, SELFPAY ==
[2024-11-05 05:40] VITALS: BP 174/108
--- NOTE | 2024-11-05 09:28 | ED.GENMED ---
History of Present Illness
General
Chief Complaint: Throat Problem
Source: patient
Exam Limitations: none
Time Seen by Provider: 11/05/24 09:11
Nursing documentation reviewed up to this point in time: agreed with
History of Present Illness
History of Present Illness:
44-year-old male limited past medical history 1 month sore throat treated with amoxicillin Zithromax and 2 days of a steroid scheduled to see ENT next week he is frustrated with no definitive diagnosis no lesions no blisters, no weight loss, no
diffuse swollen glands, no abdominal pain, he is concerned he could have an STD based on a Google search although he has 1 sexual partner his ,
Past History
Past History
ED Past Medical History: HTN
ED Past Surgical History: Other (Hernia repair)
Social History
Tobacco: Non-smoker
Alcohol: Occasional
Drug: None
Personal:
Living: with family
Employment: Employed
Review of Systems
Review of Systems
All Other Systems: Not applicable
EENT: Reports sore throat and mouth pain; Denies mouth swelling
Respiratory: Reports no symptoms
Cardiac: Reports no symptoms
Skin: Reports no symptoms
Neurological: Reports no symptoms
Endocrine: Reports no symptoms
Phy Exam
Physical Exam
Physical Exam:
Physical Exam
General: no apparent distress, not acutely ill
Neck: Posterior pharynx is red without exudate
Heart: s1/s2 regular rate and rhythm, no murmur. equal radial pulses.
Lungs: no acute respiratory distress. clear bilaterally
Abdomen: Nontender
Neuro: alert and oriented. no focal neurological deficits
Skin: no rash
Psychiatric: well kept. interactive and cooperative
Extremities: no edema
Course
Orders/Labs/Results
Orders:
Orders
11/05/24 06:04
Rapid Strep Group A Urgent
RADHA Source: Throat/Pharynx
Specimen Description:
Date Specimen was Collected: 11/05/24
Time Specimen was Collected: 05:43
11/05/24 09:26
Throat Culture [Throat Culture, Comprehensive] Routine
RADHA Source: Throat/Pharynx
Specimen Description:
Date Specimen was Collected: 11/05/24
Time Specimen was Collected: 09:28
Prednisone [Deltasone] 50 mg PO NOW STA
11/05/24 09:27
Chlamydia/GC by PCR Urgent
RADHA Source: Urine
Specimen Description:
Source:: URINE
Date Specimen was Collected: 11/05/24
Time Specimen was Collected: :28
Vital Signs
Initial and Last Documented VS:
Initial Vital Signs
Temp Pulse Resp BP Pulse Ox
97.7 F 94 18 174/108 100
11/05/24 05:40 11/05/24 05:40 11/05/24 05:40 11/05/24 05:40 11/05/24 05:40
Last Documented Vital Signs
Temp Pulse Resp BP Pulse Ox
97.7 F 94 18 174/108 100
11/05/24 05:40 11/05/24 05:40 11/05/24 05:40 11/05/24 05:40 11/05/24 05:40
MDM/Problems Addressed
Differential Diagnosis Includes:
Pharyngitis viral syndrome doubt STD he is not a smoker doubt malignancy
MDM/Problems Addressed:
Sore throat
*Pulse Oximetry
Patient hypoxic: no
*Critical Care Note
Total Time (30-74mins, 75-104mins- exclusive of procedures): Not Applicable
Update Note
Update Note:
Patient understandably frustrated with persistent symptoms will check comprehensive swab, he has no signs of deep space infection by history or physical doubt STD, he is scheduled to see ENT already in [place] next week which I think is
reasonable in the meantime and not sure more antibiotics will help we will give him 5-day burst of steroids dose down cannot do throat STD testing apparently will check urine
I do not believe this is epiglottitis peritonsillar abscess retropharyngeal abscess
ED Attending Note
-
Portions of this chart may have been created with voice recognition software.� Occasional wrong word or��sound alike� substitutions may have occurred due to the inherent limitations of voice recognition software.
Discharge Plan
Departure
Patient Disposition: Home (Routine Discharge)
Date of Disposition: 11/05/24
Time of Disposition:
Patient with high blood pressure during this ER visit?: No
Condition: Good
Covid-19: Not Applicable
Discharge Problem:
Pharyngitis
Instructions: Sore throat in adults, Sore throat in adults - ED discharge instructions
Prescriptions:
New
prednisone 50 mg tablet
50 mg PO DAILY Qty: 5 0RF
No Action
amlodipine 5 mg Tablet
5 mg PO DAILY
valsartan 80 mg Tablet
80 mg PO DAILY
oxycodone 5 mg tablet
5 - 10 mg PO Q4HPRN PRN (Reason: moderate to severe pain) Qty: 20 0RF
amoxicillin-pot clavulanate 875-125 mg tablet
1 tab PO BID Qty: 14 0RF
Zyrtec 10 mg capsule
10 mg PO DAILY Qty: 20 0RF
fluticasone propionate [Flonase Allergy Relief] 50 mcg/actuation spray,suspension
1 spray intranasal DAILY Qty: 16 0RF
azithromycin 500 mg tablet
500 mg PO DAILY 2 Days Qty: 2 0RF
prednisone 20 mg tablet
40 mg PO DAILY 3 Days Qty: 6 0RF
Referrals:
Rik Louis, [Family Provider] - Follow up in 5-7 days
Activity Restrictions/Additional Instructions:
[facility] or 2 sprays as needed for pain
Start prednisone as prescribed 50 mg a day starting tomorrow
Follow-up with your family doctor and bearing machine operator
Interventions
Interventions:
*Risk Screen - Suicide Last Done: 11/05/24 05:40
*Neglect/Abuse Screening Last Done: 11/05/24 05:40
Discharge Date and Time
Print Language: UKRAINIAN
[2024-11-05] MEDS: DELTASONE 50 MG PO (09:37)
== END 2024-11-05 09:45 | disposition home or self-care (01) ==
LOC: EMR 05:23
PROVIDERS: EMERGENCY PHYSICIAN Emergency Medicine; FAMILY PHYSICIAN Family Medicine
DX: J02.9 Acute pharyngitis, unspecified (principal); I10 Essential (primary) hypertension
CPT/HCPCS: 99283; 87070; 87491; 87591; 87880

== ENCOUNTER 2024-11-13 19:57 | Emergency (ER) | payer OTHER, SELFPAY ==
[2024-11-13 20:01] VITALS: BP 185/100
--- NOTE | 2024-11-13 21:18 | ED.GENMED ---
History of Present Illness
General
Chief Complaint: Throat Problem
Source: patient and records
Time Seen by Provider: 11/13/24 20:45
History of Present Illness
History of Present Illness:
44-year-old male presents for a sore throat. This is the patient's third visit in the last couple weeks for the same complaint. Previously patient was given a course of amoxicillin, Z-Singh and steroids and informed to follow-up with his PCP and
ENT. Patient unfortunately was not able to get a appointment quick enough to see ENT and PCP, has an ENT appointment coming up for next Monday. Patient reports that he completed his course of amoxicillin Z-Singh and steroids, however these did not
relieve his symptoms and is still present. Patient is saying that he has a sore throat and feels like it is 'coated with something' he is concerned that he may have an STD. Patient reports he is sexually active with his only. Patient is also
endorsing some new onset diarrhea and some 'funny smelling' urine.
Past History
Past History
ED Past Medical History: HTN
ED Past Surgical History: Cholecystectomy and Other (Hernia repair)
Social History
Tobacco: Non-smoker
Alcohol: Occasional
Drug: None
Personal:
Living: with family
Employment: Employed
Review of Systems
Review of Systems
Constitutional: Reports no symptoms; Denies fever
EENT: Reports sore throat, mouth pain and runny nose
Respiratory: Reports cough
Cardiac: Reports no symptoms
ABD/GI: Reports no symptoms
: Reports other (Foul-smelling urine, denies burning or frequency)
Phy Exam
General Physical Exam
General Presentation: well appearing and no apparent distress
General Skin: warm and dry
ENT Exam
ENT Exam: swallowing well and other (Pharynx has blotchy erythematous patches present on the roof of of the soft palate. Uvula is midline, there is no large mass, no abscess. Patient has no cervical lymphadenopathy on exam.)
Cardiovascular Exam
Cardiovascular Exam: regular rate/rhythm, no edema and no murmur
Pulmonary Exam
Pulmonary Exam: lungs clear, no respiratory distress, no crackles and no wheezing
Gastrointestinal Exam
Gastrointestinal Exam: non tender, soft and non distended
Course
Orders/Labs/Results
Orders:
Orders
11/13/24 21:19
Chlamydia/GC by PCR Urgent
RADHA Source: Urine
Specimen Description:
Source:: URINE
Date Specimen was Collected: 11/13/24
Time Specimen was Collected: 21:17
11/13/24 21:24
Viscous Lidocaine 2% [Xylocaine Viscous Cup] 15 ml PO Q3HPRN PRN
Vital Signs
Initial and Last Documented VS:
Initial Vital Signs
Temp Pulse Resp BP Pulse Ox
98.1 F 83 20 185/100 98
11/13/24 20:01 11/13/24 20:01 11/13/24 20:01 11/13/24 20:01 11/13/24 20:01
Last Documented Vital Signs
Temp Pulse Resp BP Pulse Ox
98.1 F 83 20 185/100 98
11/13/24 20:01 11/13/24 20:01 11/13/24 20:01 11/13/24 20:01 11/13/24 20:01
MDM/Problems Addressed
Differential Diagnosis Includes:
Pharyngitis, upper viral respiratory illness, postnasal drip
MDM/Problems Addressed:
44 male presents for for his third visit for the same complaint, patient is reporting he has a sore throat which is not resolving. Patient was seen in the emergency department previously and was tried on oral amoxicillin, Z-Singh and steroids.
Patient reports completing these modalities, antibiotics were completed about a week ago and steroids were completed yesterday. However he is reporting they have not relieved his symptoms
Patient reports he has a follow-up appointment with ENT scheduled for Monday as well as a follow-up with his PCP in about 2 weeks. Unfortunately he was unable to get any appointments and be seen prior to this ED visit
Patient is very concerned about having a potential STD. Although patient is monogamous with his and reports no sexual activity with anybody else besides her for decades
Patient denies nausea and vomiting, admits to having a cough admits to new onset diarrhea and some funny smelling urine. Denies any burning with urination, denies frequency
In the emergency department patient is afebrile, hypertensive, all other vitals within normal limits
On physical exam heart and lungs are clear, abdomen benign.
Uvula is present midline, there is no mass, no pharyngeal exudate, no peritonsillar abscess. There is blotchy erythema present along the bilateral soft palate, no edema or swelling of the airway
Will order chlamydia gonorrhea urine at patient's request
Will order viscous lidocaine every 3 hour as needed for sore throat. Given patient vial to be used during interim of discharge and follow-up appointments
Unsure etiology of patient's symptoms, could be secondary to viral upper respiratory illness, could be postnasal drip or just unresolved pharyngitis
Patient stable, no impending respiratory distress. No concern for impending airway decline
Patient stable for discharge home, encourage follow-up with PCP and hearing aid dispenser.
*Critical Care Note
Total Time (30-74mins, 75-104mins- exclusive of procedures): Not Applicable
ED Attending Note
-
Portions of this chart may have been created with voice recognition software.� Occasional wrong word or��sound alike� substitutions may have occurred due to the inherent limitations of voice recognition software.
Discharge Plan
Departure
Patient Disposition: Home (Routine Discharge)
Date of Disposition: 11/13/24
Time of Disposition: 21:18
Patient with high blood pressure during this ER visit?: Yes
Condition: Good
Discharge Problem:
Pharyngitis
Instructions: Sore Throat, Adult (DC), BLOOD PRESSURE
Prescriptions:
No Action
amlodipine 5 mg Tablet
5 mg PO DAILY
valsartan 80 mg Tablet
80 mg PO DAILY
oxycodone 5 mg tablet
5 - 10 mg PO Q4HPRN PRN (Reason: moderate to severe pain) Qty: 20 0RF
amoxicillin-pot clavulanate 875-125 mg tablet
1 tab PO BID Qty: 14 0RF
Zyrtec 10 mg capsule
10 mg PO DAILY Qty: 20 0RF
fluticasone propionate [Flonase Allergy Relief] 50 mcg/actuation spray,suspension
1 spray intranasal DAILY Qty: 16 0RF
azithromycin 500 mg tablet
500 mg PO DAILY 2 Days Qty: 2 0RF
prednisone 20 mg tablet
40 mg PO DAILY 3 Days Qty: 6 0RF
prednisone 50 mg tablet
50 mg PO DAILY Qty: 5 0RF
Referrals:
Rik Louis DO [Family Provider] - Call in 1-3 days for appt
Activity Restrictions/Additional Instructions:
Please keep your scheduled follow-up appointment with your primary care physician and hearing aid dispenser
We will call you tomorrow only if your laboratory results are abnormal, in other words if your laboratory results are positive you will get a phone call. If they are normal or negative, you will not receive a phone call tomorrow
Please return to the emergency department if you develop any severe difficulty breathing, you feel like your throat is closing, elevated temperature above 100.4 or with any concerns
Interventions
Interventions:
*General Assessment Last Done: 11/13/24 20:01
Discharge Date and Time
Print Language: MOZAMBICAN
== END 2024-11-13 21:44 | disposition home or self-care (01) ==
LOC: EMR 19:57
PROVIDERS: EMERGENCY PHYSICIAN Emergency Medicine; FAMILY PHYSICIAN Family Medicine
DX: J02.9 Acute pharyngitis, unspecified (principal); I10 Essential (primary) hypertension
CPT/HCPCS: 99283; 87491; 87591

== ENCOUNTER 2025-02-20 01:20 | Emergency (ER) | payer OTHER, SELFPAY ==
[2025-02-20 01:56] VITALS: BP 159/107
[2025-02-20 03:11] VITALS: BMI 38.7
[2025-02-20 03:16] VITALS: BP 176/93
[2025-02-20 03:36] LABS: Urine Albumin Negative (Neg - Trace); Urine Bilirubin Negative (Negative); Urine Character Clear (Clear); Urine Color Yellow; Urine Glucose Negative (Negative); Urine Ketone Negative (Negative); Urine Leukocyte Negative (Negative); Urine Nitrite Negative (Negative); Urine Occult Blood Negative (Negative); Urine Urobilinogen Negative (Neg - 1+); Urine pH 6.5 (5.0-9.0)
[2025-02-20 04:00] VITALS: BP 143/83
[2025-02-20 05:00] VITALS: BP 154/65
--- NOTE | 2025-02-20 05:13 | ED.GENMED ---
History of Present Illness
General
Chief Complaint: Male Genito-Urinary Symptoms
Source: patient
Exam Limitations: none
Time Seen by Provider: 02/20/25 05:04
Nursing documentation reviewed up to this point in time: agreed with
History of Present Illness
History of Present Illness:
This is a 44-year-old gentleman with history of hypertension, anxiety admits to generalized worry regarding his health, admits to concern for possible immunocompromise as he was suffering a fair amount of sore throats last year.
He complains of intermittent foul-smelling urine over the past several months and was evaluated in this ED with similar complaints of foul-smelling urine. Urinalysis was unremarkable, GC chlamydia were negative.
He then followed up with his PCP and underwent further testing and patient states he was found to have RPR positive.
He has since followed up with infectious disease specialist, had an initial appointment last week and had a repeat RPR completed last week that again returned positive but he does not have the results available.
He is concerned as he has not heard back from the infectious disease specialist as yet.
He admits to increased worry more so at nighttime and is concerned that he is developing neurosyphilis.
He has not had a fever or nor chills. No rash.
Past History
Past History
ED Past Medical History: HTN and Psychiatric
ED Past Surgical History: Cholecystectomy and Other (Hernia repair)
Social History
Tobacco: Non-smoker
Alcohol: Occasional
Drug: None
Personal:
Living: with family
Employment: Employed
Family History
Family History: Other (Noncontributory)
Phy Exam
Physical Exam
Physical Exam:
PHYSICAL EXAMINATION:
General: 44-year-old gentleman appears his stated age, awake and alert, mildly anxious but easily communicative and overall in no acute distress.
Neuro: alert and oriented. no focal neurological deficits. Gait is andrews and steady.
Abdomen: Rotund, soft, nondistended, nontender.
Skin: Warm and dry, normal color. Good turgor. No rash.
Psychiatric: Mildly anxious. Easily communicative.
Musculoskeletal: [No clubbing or cyanosis nor edema. Peripheral pulses are full and equal.]
Course
Orders/Labs/Results
Orders:
Orders
02/20/25 03:23
Urinalysis Reflex To Culture Urgent
Date Specimen was Collected: 02/20/25
Time Specimen was Collected: 02:02
Vital Signs
Initial and Last Documented VS:
Initial Vital Signs
Temp Pulse Resp BP Pulse Ox
98.6 F 81 18 159/107 97
02/20/25 01:56 02/20/25 01:56 02/20/25 01:56 02/20/25 01:56 02/20/25 01:56
Last Documented Vital Signs
Temp Pulse Resp BP Pulse Ox
98.6 F 81 18 143/83 99
02/20/25 01:56 02/20/25 01:56 02/20/25 01:56 02/20/25 04:00 02/20/25 04:30
MDM/Problems Addressed
Differential Diagnosis Includes:
Patient presents with concern for foul-smelling urine but denies dysuria and urgency and or hematuria. No abdominal pain or back pain.
Concern for potential UTI.
Urinalysis is unremarkable. No evidence of UTI.
He also reports positive RPR in November and then continued positive RPR earlier this week, ordered by infectious disease specialist. I do not have these results to review.
I do not suspect disseminated nor neurosyphilis. Overall well in appearance.
Encouraged follow-up with infectious disease specialist with RPR results to discuss appropriate treatment.
Chronic conditions affecting care: Psychiatric illness
*Pulse Oximetry
Patient hypoxic: no
*Critical Care Note
Total Time (30-74mins, 75-104mins- exclusive of procedures): Not Applicable
ED Attending Note
-
Portions of this chart may have been created with voice recognition software.� Occasional wrong word or��sound alike� substitutions may have occurred due to the inherent limitations of voice recognition software.
Discharge Plan
Departure
Patient Disposition: Home (Routine Discharge)
Date of Disposition: 02/20/25
Time of Disposition: 05:14
Patient with high blood pressure during this ER visit?: No
Condition: Good
Discharge Problem:
Anxiety about health
Instructions: Generalized anxiety disorder
Prescriptions:
No Action
amlodipine 5 mg Tablet
5 mg PO DAILY
valsartan 80 mg Tablet
80 mg PO DAILY
oxycodone 5 mg tablet
5 - 10 mg PO Q4HPRN PRN (Reason: moderate to severe pain) Qty: 20 0RF
amoxicillin-pot clavulanate 875-125 mg tablet
1 tab PO BID Qty: 14 0RF
Zyrtec 10 mg capsule
10 mg PO DAILY Qty: 20 0RF
fluticasone propionate [Flonase Allergy Relief] 50 mcg/actuation spray,suspension
1 spray intranasal DAILY Qty: 16 0RF
azithromycin 500 mg tablet
500 mg PO DAILY 2 Days Qty: 2 0RF
prednisone 20 mg tablet
40 mg PO DAILY 3 Days Qty: 6 0RF
prednisone 50 mg tablet
50 mg PO DAILY Qty: 5 0RF
Referrals:
UNKNOWN - PT DOES,NOT KNOW [Family Provider] -
Activity Restrictions/Additional Instructions:
Call the infectious disease specialist today to discuss RPR results.
Interventions
Interventions:
*Risk Screen - Suicide Last Done: 02/20/25 01:56
*General Assessment Last Done: 02/20/25 03:12
*Neglect/Abuse Screening Last Done: 02/20/25 03:12
*ED- Fall Risk Assessment Last Done: 02/20/25 03:12
*ED COVID-19 Vaccine History Last Done: 02/20/25 03:12
ED-Male Genitourinary Assessment Last Done: 02/20/25 03:12
Discharge Date and Time
Print Language: HUNGARIAN
== END 2025-02-20 05:40 | disposition home or self-care (01) ==
LOC: EMR 01:20
PROVIDERS: EMERGENCY PHYSICIAN Emergency Medicine
DX: F41.9 Anxiety disorder, unspecified (principal); I10 Essential (primary) hypertension; G47.30 Sleep apnea, unspecified; Z87.891 Personal history of nicotine dependence; Z86.16 Personal history of COVID-19; Z90.49 Acquired absence of other specified parts of digestive tract
CPT/HCPCS: 99283; 81003